=== PATIENT | male | born 1950 | race Caucasian/White ===

== ENCOUNTER 2017-03-24 13:24 | Outpatient (RCR) | payer MEDICARE, OTHER ==
[~2017-03-24 13:24] MED LIST: BUPR200T PO; CLON0.5T3 PO; HYDR118S10 PO; LEVO75TA6 PO; LOVA20TA2 PO; NAPR-689 PO; TRAM50TA2 PO
== END 2017-05-16 16:00 | disposition home or self-care (01) ==
PROVIDERS: ATTEND Podiatrist
DX: Z47.1 Aftercare following joint replacement surgery (principal); Z96.662 Presence of left artificial ankle joint

== ENCOUNTER → 2017-10-15 | Outpatient (CLI) | payer MEDICARE, OTHER | LOC: WOUNDCARE 09:11 | PROVIDERS: ATTEND Surgery | DX: I87.332 Chronic venous hypertension (idiopathic) with ulcer and inflammation of left lower extremity (principal); L97.222 Non-pressure chronic ulcer of left calf with fat layer exposed; T81.31XA Disruption of external operation (surgical) wound, not elsewhere classified, initial encounter | CPT/HCPCS: 11042; 87070; 87075; 87186; 87205; 99213 ==

== ENCOUNTER → 2017-10-20 | Outpatient (CLI) | payer MEDICARE, OTHER | LOC: WOUNDCARE 13:52 | PROVIDERS: ATTEND Surgery | DX: I87.332 Chronic venous hypertension (idiopathic) with ulcer and inflammation of left lower extremity (principal); L97.222 Non-pressure chronic ulcer of left calf with fat layer exposed; T81.31XA Disruption of external operation (surgical) wound, not elsewhere classified, initial encounter | CPT/HCPCS: 11042 ==

== ENCOUNTER → 2017-10-31 | Outpatient (CLI) | payer MEDICARE, OTHER | LOC: WOUNDCARE 08:55 | PROVIDERS: ATTEND Surgery | DX: L97.222 Non-pressure chronic ulcer of left calf with fat layer exposed (principal); I87.332 Chronic venous hypertension (idiopathic) with ulcer and inflammation of left lower extremity; T81.31XA Disruption of external operation (surgical) wound, not elsewhere classified, initial encounter | CPT/HCPCS: 99213 ==

== ENCOUNTER 2018-11-09 11:38 | Emergency (ER) | payer MEDICARE, OTHER ==
[~2018-11-09] VITALS: Ht 185.4 cm; Wt 105.2 kg
[~2018-11-09 11:38] MED LIST changes: +FAMOTIDINE 20MG/2ML IV (PEPCID) ONE; +diphenhydrAMINE 50 MG/ML INJ (BENADRYL) ONE; +methylPREDNISolone 125 MG (Solu-MEDROL) VIAL ONE
--- OUTSIDE RECORDS SUMMARY | 2018-11-09 11:42 | XMS REPORT | Continuity of Care Document ---
Author Organization Unknown Address Unknown Phone Unavailable Allergies Active Description Code Type Severity Reaction Onset Reported/Identified Relationship to Patient Clinical Status Yes Penicillins [id number] Drug Allergy Unknown N/A 12/05/2013 Medications There is no data. Problems Date Dx Coded Attending Type Code Diagnosis Diagnosed By 12/05/2013 SIMI GIPSON MD Ot 596.3 DIVERTICULUM OF BLADDER 12/05/2013 SIMI GIPSON MD Ot 753.10 CYSTIC KIDNEY DISEASE, UNSPECIFIED 12/05/2013 SIMI GIPSON MD Ot 789.09 ABDOMINAL PAIN, OTHER SPECIFIED SITE 03/11/2014 CONNOR ESQUEDA MD Ot V43.65 KNEE JOINT REPLACEMENT STATUS 03/11/2014 CONNOR ESQUEDA MD Ot V54.81 AFTERCARE FOLLOWING JOINT REPLACEMENT 03/11/2014 CONNOR ESQUEDA MD Ot V57.1 PHYSICAL THERAPY NEC 03/13/2017 Ot 794.5 ABN THYROID FUNCT STUDY 03/13/2017 MELLY KAY LABORATORY COORDINATOR Ot 786.07 WHEEZING 03/13/2017 MELLY KAY LABORATORY COORDINATOR Ot 786.2 COUGH 03/17/2017 Ot 794.5 ABN THYROID FUNCT STUDY 03/17/2017 MELLY KAY LABORATORY COORDINATOR Ot 786.07 WHEEZING 03/17/2017 MELLY KAY LABORATORY COORDINATOR Ot 786.2 COUGH 05/05/2017 ADELAIDA MARTINEZ DPM Ot Z47.1 AFTERCARE FOLLOWING JOINT REPLACEMENT BUSTOS 05/05/2017 ADELAIDA MARTINEZ DPM Ot Z96.662 PRESENCE OF LEFT ARTIFICIAL ANKLE JOINT 10/16/2017 BARNEY FLORENTINO MD Ot 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 10/16/2017 BARNEY FLORENTINO MD Ot L97.222 NON-PRESSURE CHRONIC ULCER OF LEFT CALF 10/16/2017 BARNEY FLORENTINO MD Ot T81.31XA DISRUPTION OF EXTERNAL OPERATION (SURGIC 10/23/2017 BARNEY FLORENTINO MD, Ot 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 10/23/2017 BARNEY FLORENTINO MD Ot L97.222 NON-PRESSURE CHRONIC ULCER OF LEFT CALF 10/23/2017 BARNEY FLORENTINO MD, Ot T81.31XA DISRUPTION OF EXTERNAL OPERATION (SURGIC 10/26/2017 BARNEY FLORENTINO MD, Ot 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 10/26/2017 BARNEY FLORENTINO MD, Ot L97.222 NON-PRESSURE CHRONIC ULCER OF LEFT CALF 10/26/2017 BARNEY FLORENTINO MD Ot T81.31XA DISRUPTION OF EXTERNAL OPERATION (SURGIC 11/03/2017 BARNEY FLORENTINO MD, Ot 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 11/03/2017 BARNEY FLORENTINO MD, Ot L97.222 NON-PRESSURE CHRONIC ULCER OF LEFT CALF 11/03/2017 BARNEY FLORENTINO MD, Ot T81.31XA DISRUPTION OF EXTERNAL OPERATION (SURGIC 11/04/2017 BARNEY FLORENTINO MD, Ot 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 Results Test Result Range Bacteria identification in isolate by anaerobe culture - 10/15/17 10:22 Bacteria identification in isolate by anaerobe culture NOANA NRG Gram stain microscopy - 10/15/17 10:22 GRAM STAIN RESULT NO BACTERIA NRG Bacteria identification in wound by culture - 10/15/17 10:22 Bacteria identification in wound by culture [id number] NR FREE TEXT EXTERNAL SENSTIVITY REPORTED 10/19/17 8:15 NRG QUANTITY OF GROWTH Scant Growth NR Bacterial susceptibility panel - 10/15/17 10:22 Oxacillin susceptibility test by minimum inhibitory concentration <= NRG Gentamicin susceptibility test by minimum inhibitory concentration <= NRG Clindamycin susceptibility test by minimum inhibitory concentration >= NRG Erythromycin susceptibility test by minimum inhibitory concentration >= NRG Trimethoprim/sulfamethoxazole susceptibility test by minimum inhibitoryconcentration R NRG Vancomycin susceptibility test by minimum inhibitory concentration 1 NRG Levofloxacin susceptibility test by minimum inhibitory concentration 0.25 NRG Rifampin susceptibility test by minimum inhibitory concentration <= NRG Tetracycline susceptibility test by minimum inhibitory concentration >= NRG Linezolid susceptibility test by minimum inhibitory concentration 1 NRG Encounters ACCT No. Visit Date/Time Discharge Status Pt. Type Provider Facility Loc./Unit Complaint 08/20/15 10/14/2018 23:24:56 10/14/2018 23:59:59 CLS Outpatient MacLashanda byrd [id number] 10/31/2017 08:55:00 10/31/2017 23:59:59 CLS Outpatient BARNEY FLORENTINO MD [facility] [id number] 10/20/2017 13:52:00 10/20/2017 23:59:59 CLS Outpatient BARNEY FLORENTINO MD [facility] [id number] 10/15/2017 09:11:00 10/15/2017 23:59:59 CLS Outpatient BARNEY FLORENTINO MD [facility] [id number] 03/24/2017 13:24:00 05/16/2017 16:00:00 DIS Outpatient ADELAIDA MARTINEZ DPM [facility] S/P TOTAL ANKLE REPLACEMENT L [id number] 03/11/2014 14:45:00 03/11/2014 15:46:00 DIS Outpatient CONNOR ESQUEDA MD [facility] RT TKR [id number] 12/05/2013 20:05:00 12/05/2013 22:15:00 DIS Emergency SIMI GIPSON MD [facility] ER KIDNEY PAIN [id number] 04/19/2013 14:39:00 04/19/2013 23:59:59 CLS Outpatient MELLY KAY [facility] RAD COUGH,WHEEZING [id number] 11/18/2011 09:38:00 Document Registration
--- NOTE | 2018-11-09 11:50 | ED General ---
General Stated Complaint: ALLERGIC REACTION Source of Information: Patient Exam Limitations: No Limitations History of Present Illness Date Seen by Provider: Nov 09, 2018 Time Seen by Provider: 11:48 Initial Comments To ER by private vehicle from Dr. ROJAS's office with reports of allergic reaction. Patient was started on clindamycin 5 days ago for "MRSA" wounds on the right shoulder. Those are looking much better but starting yesterday he had redness and itching to both of his arms. treated with topical Benadryl at home no improvement. He feels a bit short of breath today during follow-up with Dr. Rojas's nurse practitioner and was referred to the emergency room. Timing/Duration: 1-2 Days Severity: Moderate Allergies and Home Medications Allergies Coded Allergies: Penicillins (Verified Allergy, Unknown, 12/05/13) Home Medications Bupropion Hcl 200 Mg Tablet.sa, 200 MG PO BID, (Reported) Clonazepam 0.5 Mg Tablet, 0.5 MG PO BID, (Reported) 1/2-1 TAB UP TO 2 TIMES PER DAY Hydrocodone/Acetaminophen 1 Each Tablet, 1 EACH PO Q6H PRN for PAIN Prescribed by: SIMI GIPSON on 12/05/132205 Levothyroxine Sodium 75 Mcg Tablet, 75 MCG PO DAILY, (Reported) Lovastatin 20 Mg Tablet, 1 EACH PO DAILY WITH SUPPER, (Reported) Naproxen 500 Mg Tablet, 500 MG PO BID, (Reported) Tramadol Hcl 50 Mg Tablet, 50 MG PO QID, (Reported) Patient Home Medication List Home Medication List Reviewed: Yes Review of Systems Review of Systems Constitutional: see HPI EENTM: see HPI Respiratory: see HPI, dyspnea on exertion, short of breath Cardiovascular: no symptoms reported Genitourinary: no symptoms reported Musculoskeletal: no symptoms reported Skin: see HPI Psychiatric/Neurological: No Symptoms Reported Hematologic/Lymphatic: No Symptoms Reported Immunological/Allergic: no symptoms reported Past Axlpnmi-Eyvcrz-Bywxcm Hx Past Medical History Pneumonia Reproductive Disorders: No Sexually Transmitted Disease: No HIV/AIDS: No Kidney Infection Abdominal Hernia Hypothyroidsim Sleep Difficulties, Anxiety Physical Exam Vital Signs Vital Signs - First Documented 11/09/18 11:45 Temp 100.0 Pulse 84 Resp 22 B/P (MAP) 137/96 (110) Pulse Ox 97 O2 Delivery Room Air Capillary Refill : Height, Weight, BMI Height: 6'1" Weight: 190lbs. oz. 86.882697zc; BMI Method:Stated General Appearance: No Apparent Distress, WD/WN, Other (no wheezing or shortness of breath that is apparent.) Eyes: Bilateral Eye Normal Inspection, Bilateral Eye PERRL, Bilateral Eye EOMI HEENT: PERRL/EOMI, Other (no tongue or uvula swelling no stridor) Neck: Full Range of Motion, Normal Inspection Respiratory: Normal Breath Sounds, No Accessory Muscle Use, No Respiratory Distress; No Stridor, No Wheezing Cardiovascular: Regular Rate, Rhythm, Normal Peripheral Pulses Gastrointestinal: Normal Bowel Sounds, Non Tender, Soft, Other (he is neither tachycardic nor hypotensive) Extremity: Normal Capillary Refill, Normal Inspection (extremities are diffusely urticarial and red, around the waistline as well, anterior torso is clear, posterior torso) Neurologic/Psychiatric: Alert, Oriented x3 Skin: Normal Color, Warm/Dry Progress/Results/Core Measures Suspected Sepsis SIRS Temperature: Pulse: Respiratory Rate: Blood Pressure / Mean: Results/Orders My Orders Orders - JENNIFER BOYD APRN Diphenhydramine Injection (Benadryl Inje (11/09/18 12:15) Famotidine Injection (Pepcid Injection) (11/09/18 12:15) Methylprednisolone Sod Succ (Solu-Medrol (11/09/18 12:15) Vital Signs/I&O 11/09/18 11:45 Temp 100.0 Pulse 84 Resp 22 B/P (MAP) 137/96 (110) Pulse Ox 97 O2 Delivery Room Air Capillary Refill : Departure Communication (Admissions) 1238-patient is feeling better, less itching, the erythema to the arms is still present but much cone examiner in color. No difficulty breathing. Still no tongue swelling. Impression Primary Impression: Allergic reaction Qualified Codes: T78.40XA - Allergy, unspecified, initial encounter Disposition: 01 HOME, SELF-CARE Condition: Stable Departure-Patient Inst. Decision time for Depature: 12:49 Referrals: ADELAIDA MARTINEZ DPM (PCP) Primary Care Physician Patient Instructions: Drug Allergy Add. Discharge Instructions: 1. Take Benadryl one tablet every 4 hours for the next 24 hours. Take steroids as directed starting today. Return to ER for any concerns. Scripts Prednisone (Prednisone) 20 Mg Tab 40 MG PO DAILY, #8 TAB 0 Refills Prov: JENNIFER BOYD APRN 11/09/18 JENNIFER BOYD APRN Nov 09, 2018 11:50
[2018-11-09] MEDS ORDERED: FAMOTIDINE 20MG/2ML IV (PEPCID) IVP ONE (12:15)
[2018-11-09] MEDS ORDERED: diphenhydrAMINE 50 MG/ML INJ (BENADRYL) IVP ONE (12:15)
[2018-11-09] MEDS ORDERED: methylPREDNISolone 125 MG (Solu-MEDROL) VIAL IVP ONE (12:15)
[2018-11-09] MEDS ORDERED: PRD20T PO (12:50)
[2018-11-09 13:10] VITALS: BP 109/79
== END 2018-11-09 13:10 | disposition home or self-care (01) ==
LOC: EDUNIT# 11:38 → ER 11:39
DX: T78.40XA Allergy, unspecified, initial encounter (principal); E03.9 Hypothyroidism, unspecified; F41.9 Anxiety disorder, unspecified; Z88.0 Allergy status to penicillin

== ENCOUNTER → 2019-04-26 | Outpatient (CLI) | payer MEDICARE, OTHER ==
[~2019-04-26] MED LIST changes: -FAMOTIDINE 20MG/2ML IV (PEPCID) ONE; +PRD20T PO; -diphenhydrAMINE 50 MG/ML INJ (BENADRYL) ONE; -methylPREDNISolone 125 MG (Solu-MEDROL) VIAL ONE
--- NOTE | 2019-04-26 10:05 | Diagnostic Imaging Report ---
PROCEDURE: US Hepatic (Liver). TECHNIQUE: Multiple real-time grayscale images were obtained over the right upper quadrant in various projections. INDICATION: Elevated liver enzymes. FINDINGS: The liver is normal in size at 17 cm. There is diffuse increased echogenicity throughout the liver consistent with hepatic steatosis. No discrete liver mass is identified. The portal vein is patent and shows normal direction of flow. The gallbladder is without stones or sludge. No wall thickening or biliary ductal dilatation is seen. Pancreas and aorta were obscured by bowel gas. IVC is patent. Right kidney does contain a large cyst in the upper pole approximately 7 cm in diameter. No calculi or hydronephrosis is seen. There is no ascites. IMPRESSION: 1. Hepatic steatosis. 2. No evidence of cholelithiasis or acute cholecystitis. 3. 7 cm right renal cyst. Dictated by: Dictated on workstation # [id number]
== END ==
LOC: RAD 07:52
PROVIDERS: ATTEND Family Medicine
DX: K76.0 Fatty (change of) liver, not elsewhere classified (principal); N28.1 Cyst of kidney, acquired
CPT/HCPCS: 76705

== ENCOUNTER → 2021-01-22 | Outpatient (CLI) | payer MEDICARE ==
--- NOTE | 2021-01-22 15:58 | Diagnostic Imaging Report ---
PROCEDURE: US Renal Bilateral. TECHNIQUE: Multiple real-time grayscale images were obtained over the kidneys in various projections bilaterally. INDICATION: Acute renal failure. COMPARISON: Comparison with ultrasound from 04/26/2019. FINDINGS: Right kidney measures 13 x 5.6 x 4.8 cm. There is a large simple cyst measuring 7 cm again demonstrated off the upper pole. No solid masses or calculi are seen. There is no hydronephrosis. The left kidney measures 11 x 6 x 6 cm. There is a cyst in the mid upper pole measuring 1.5 cm. No calculi or hydronephrosis. The bladder appears normal with bilateral ureteral jets. IMPRESSION: There are benign-appearing cysts within the kidneys bilaterally. Largest on the right has not changed since the previous hepatic ultrasound. Dictated by: Dictated on workstation # [id number]
== END ==
LOC: RAD 14:45
PROVIDERS: ATTEND Family Medicine
DX: N28.1 Cyst of kidney, acquired (principal); N17.9 Acute kidney failure, unspecified
CPT/HCPCS: 76770

== ENCOUNTER 2021-03-25 23:20 | Emergency (ER) | payer MEDICARE ==
[~2021-03-25] VITALS: Ht 185 cm; Wt 105.0 kg
[2021-03-25] MEDS ORDERED: LISI10TA25 (23:46)
--- NOTE | 2021-03-26 00:22 | ED Cough/URI ---
General Chief Complaint: COVID19 Suspect/Confirmed Stated Complaint: COUGH / FEVER / WEAKNESS/ SORE THRAOT / BODY ACHES Nursing Triage Note: REPORTS EXPOSURE TO COVID + FAMILY APPROX. 1 WEEK AGO. C/O INTERMITTANT FEVER/SOA/WEAKNESS X4 DAYS. Source: patient (VERY VAGUE AND SOMEWHAT DIFFICULT HISTORIAN) History of Present Illness Date Seen by Provider: Mar 25, 2021 Time Seen by Provider: 23:36 Initial Comments PT ARRIVES VIA POV FROM HOME STATES HE HAS COVID--BUT HAS NOT BEEN TESTED OR SOUGHT CARE AT ANY TIME UNTIL TONIGHT SYMPTOMS ARE NO DIFFERENT TONIGHT IN ANY WAY C/O COUGH AND CONGESTION C/O SUBJECTIVE FEVER C/O HEADACHE C/O BODY ACHES C/O SORE THROAT C/O LOSS OF TASTE AND SMELL C/O NAUSEA AND "A LITTLE BIT" OF VOMITING, DIARRHEA X 2 TODAY C/O FATIGUE AND GENERALIZED WEAKNESS NO SHORTNESS OF BREATH NO URINARY SYMPTOMS AND VOIDING A NORMAL AMOUNT STATES SYMPTOMS BEGAN "SOMETIME BEFORE LAST WEEKEND" BUT CANNOT BE ANY MORE SPECIFIC THAN THAN ( TONIGHT IS FRIDAY NIGHT, AND PT STATES HE HAS BEEN SICK FOR OVER A WEEK ) PT STATES HIS GRANDSON TESTED POSITIVE "A WEEK OR TWO AGO" PT STATES HIS IS ALSO ILL, BUT SHE HAS NOT BEEN TESTED OR SOUGHT CARE PT HAS NOT HAD COVID-19 VACCINE, NOR HAS HIS PT HAS NOT TAKEN ANY TYLENOL OR MOTRIN AT ANY TIME, NOR HAS HE TAKEN ANYTHING FOR COUGH AND CONGESTION STATES HE DID TAKE TRAMADOL A COUPLE OF TIMES FOR BODY ACHES PT DENIES ANY CHRONIC RESPIRATORY PROBLEMS STATES HE QUIT SMOKING 20 YEARS AGO. PCP: DR. VALLADARES Allergies and Home Medications Allergies Coded Allergies: Penicillins (Verified Allergy, Unknown, 12/05/13) clindamycin (Verified Allergy, Unknown, 11/09/18) Patient Home Medication List Home Medication List Reviewed: Yes Levothyroxine Sodium (Levothyroxine 75 Mcg Tab) 75 Mcg Tablet, 75 MCG PO DAILY, (Reported) Entered as Reported by: JUAN F PICKARD on 12/05/13 2030 Last Action: Last Taken Edited Lisinopril (Lisinopril) 10 Mg Tablet, (Reported) Entered as Reported by: SCOTTY YARBROUGH on 03/25/21 2346 Last Action: New Order Tramadol Hcl (Tramadol Hcl) 50 Mg Tablet, 50 MG PO QID, (Reported) Entered as Reported by: JUAN F PICKARD on 12/05/132029 Last Action: Last Taken Edited Discontinued Medications Bupropion Hcl (Bupropion Hcl) 200 Mg Tablet.sa, 200 MG PO BID, (Reported) Discontinued Reason: No Longer Taking Entered as Reported by: JUAN F PICKARD on 12/05/132029 Last Action: Discontinued Clonazepam (Clonazepam) 0.5 Mg Tablet, 0.5 MG PO BID, (Reported) Discontinued Reason: No Longer Taking Entered as Reported by: JUAN F PICKARD on 12/05/132030 Last Action: Discontinued Hydrocodone/Acetaminophen (Hydrocodon-Acetamin 7.5-325/15) 1 Each Tablet, 1 EACH PO Q6H PRN for PAIN Discontinued Reason: No Longer Taking Prescribed by: SIMI GIPSON on 12/05/132205 Last Action: Discontinued Lovastatin (Lovastatin 20 Mg) 20 Mg Tablet, 1 EACH PO DAILY WITH SUPPER, (Reported) Discontinued Reason: No Longer Taking Entered as Reported by: JUAN F PICKARD on 12/05/132030 Last Action: Discontinued Naproxen (Naproxen) 500 Mg Tablet, 500 MG PO BID, (Reported) Discontinued Reason: No Longer Taking Entered as Reported by: JUAN F PICKARD on 12/05/132030 Last Action: Discontinued Prednisone (Prednisone) 20 Mg Tab, 40 MG PO DAILY Discontinued Reason: No Longer Taking Prescribed by: JENNIFER BOYD on 11/09/18 1250 Last Action: Discontinued Review of Systems Review of Systems Constitutional: see HPI, fever, malaise, weakness EENTM: see HPI, nose congestion, throat pain Respiratory: see HPI, cough; No phlegm, No short of breath, No wheezing Cardiovascular: no symptoms reported; No chest pain Gastrointestinal: see HPI; No abdominal pain; diarrhea, nausea, vomiting Genitourinary: no symptoms reported Musculoskeletal: see HPI (BODY ACHES) Skin: no symptoms reported Psychiatric/Neurological: See HPI, Headache Hematologic/Lymphatic: No Symptoms Reported Immunological/Allergic: no symptoms reported Past Pidawrq-Fghrct-Vvqnmk Hx Patient Social History Tobacco Use?: Yes (QUIT SMOKING 20 YEARS AGO) Tobacco type used: Cigarettes Smoking Status: Former Smoker Substance use?: No Alcohol Use?: No Pt feels they are or have been: No Immunizations Up To Date Influenza Vaccine Up-to-Date: Yes; Up-to-Date Seasonal Allergies Seasonal Allergies: Yes Past Medical History Surgery/Hospitalization HX: HTN, ORTHOPEDIC SX. Surgeries: Yes (HERNIA, LT ANKLE, RT KNEE) Abdominal, Orthopedic Respiratory: Yes Pneumonia Cardiac: Yes (HX OF HYPERTENSION--DOES NOT TAKE MEDICATION) Neurological: No (HEAT STROKE) Reproductive Disorders: No Sexually Transmitted Disease: No HIV/AIDS: No Genitourinary: Yes Kidney Infection Gastrointestinal: Yes Abdominal Hernia Musculoskeletal: Yes (KNEE PAIN) Arthritis Endocrine: Yes Hypothyroidsim HEENT: No Cancer: No Psychosocial: Yes Sleep Difficulties, Anxiety Blood Disorders: No Physical Exam Vital Signs - First Documented 03/25/21 23:35 Temp 36.1 Pulse 87 Resp 16 B/P (MAP) 132/79 (96) Pulse Ox 94 O2 Delivery Room Air Capillary Refill : Less Than 3 Seconds Height: 6'1" Weight: 232lbs. oz. 105.529030qi; 30.00 BMI Method:Stated General Appearance: WD/WN, no apparent distress, other (FLAT AFFECT, BUT DOES NOT APPEAR ILL OR TO BE IN ANY DISCOMFORT OR DISTRESS. WALKS AND MOVES WITHOUT DIFFICULTY) HEENT: PERRL/EOMI, normal ENT inspection, TMs normal, pharynx normal Neck: normal inspection Respiratory: normal breath sounds, no respiratory distress, no accessory muscle use Cardiovascular: regular rate, rhythm, no murmur Gastrointestinal: non tender, soft Extremities: normal inspection Neurologic/Psychiatric: end user consultant II-XII nml as tested, no motor/sensory deficits, alert, oriented x 3 Skin: normal color, warm/dry; No rash Progress/Results/Core Measures Suspected Sepsis SIRS Temperature: Pulse: 87 Respiratory Rate: 16 Blood Pressure 132 /79 Mean: 96 Results/Orders Lab Results Laboratory Tests Test 03/25/21 23:39 Range/Units Influenza Type A (RT-PCR) Not Detected Not Detecte Influenza Type B (RT-PCR) Not Detected Not Detecte SARS-CoV-2 RNA (RT-PCR) Detected H Not Detecte My Orders Orders - FADI TO DO Influenza A And B By Pcr (03/25/21 23:36) Covid 19 Inhouse Test (03/25/21 23:36) Isolation Central Supply Req (03/25/21 23:36) Chest 1 View, Ap/Pa Only (03/26/21 00:01) Vital Signs/I&O 03/25/21 23:35 Temp 36.1 Pulse 87 Resp 16 B/P (MAP) 132/79 (96) Pulse Ox 94 O2 Delivery Room Air Capillary Refill : Less Than 3 Seconds Blood Pressure Mean: 96 Progress Note : Progress Note PLACED IN ISOLATION ROOM PPE WORN AT ALL TIMES COVID-19 TESTING PERFORMED PT ADVISED OF NEED FOR QUARANTINE AND RETURN PRECAUTIONS, WELL SYMPTOMATIC CARE AT HOME PT IS NOT A CANDIDATE FOR MAB ONSET IS VAGUE, AND HAS BEEN ILL FOR OVER A WEEK. Diagnostic Imaging Comments CXR--NO ACUTE PROCESS, PENDING RADIOLOGIST REVIEW Reviewed: Reviewed by Me Departure Impression Primary Impression: COVID-19 virus infection Disposition: HOME, SELF-CARE Condition: Stable Departure-Patient Inst. Decision time for Depature: 00:19 Referrals: JESSICA VALLADARES DO (PCP/Family) Primary Care Physician Patient Instructions: COVID-19 ED, Preventing the Spread of an Infectious Disea se Add. Discharge Instructions: LOTS OF CLEAR LIQUIDS--WATER, BROTH, JELLO, GATORADE--DRINK ENOUGH SO YOU ARE URINATING EVERY 2-3 HOURS WHILE AWAKE TYLENOL 1 GRAM 4 TIMES A DAY MOTRIN 800 MG 4 TIMES A DAY FOR PAIN OR FEVER MUCINEX DM FOR COUGH AND CONGESTION QUARANTINE YOURSELF AND ALL HOUSEHOLD MEMBERS FOR THE NEXT 10 DAYS--NO ONE ENTERS OR LEAVES YOUR HOME FOR THE NEXT 10 DAYS RETURN TO ER IF YOU HAVE SEVERE SHORTNESS OF BREATH FOLLOW UP WITH DR. VALLADARES NEEDED All discharge instructions reviewed with patient and/or family. Voiced understanding. FADI TO DO Mar 26, 2021 00:22
[2021-03-26 00:24] VITALS: BP 133/79
--- NOTE | 2021-03-26 04:28 | Diagnostic Imaging Report ---
INDICATION: Covid patient, cough and fever. Compared 04/19/2013. FINDINGS: No focal alveolar consolidation or bronchograms. There is no failure, effusion or pneumothorax. No free air beneath the diaphragms. IMPRESSION: No acute or focal abnormality radiographically apparent. Dictated by: Dictated on workstation # [id number]
[2021-03-28] MEDS ORDERED: FAMO20TA5 PO (12:50)
[2021-03-28] MEDS ORDERED: DEXA6TAB6 PO (12:50)
[2021-03-28] MEDS ORDERED: Albuterol Inhaler IH (12:50)
[2021-03-28] MEDS ORDERED: LACT1CAP7 PO (12:50)
[2021-03-28] MEDS ORDERED: GUAI100L13 PO (12:50)
== END 2021-03-26 00:29 | disposition home or self-care (01) ==
LOC: EDUNIT# 23:20 → ER 23:21
DX: U07.1 COVID-19 (principal); I10 Essential (primary) hypertension; E03.9 Hypothyroidism, unspecified; F41.9 Anxiety disorder, unspecified; Z87.891 Personal history of nicotine dependence; Z79.890 Hormone replacement therapy; Z79.899 Other long term (current) drug therapy
CPT/HCPCS: 71045; 87636

== ENCOUNTER 2021-03-26 15:37 | Inpatient (IN) | payer MEDICARE ==
[~2021-03-26] VITALS: Ht 185 cm; Wt 102.3 kg
[~2021-03-26 15:37] MED LIST changes: +LISI10TA25
[2021-03-26 16:30] VITALS: BP 122/84
[2021-03-26] MEDS ORDERED: ONDANSETRON 4 MG/2 ML (SDV) Z0FRAN IV PRN (16:45)
--- NOTE | 2021-03-26 17:11 | Diagnostic Imaging Report ---
INDICATION: Covid positive, cough and fever.. TECHNIQUE: Single view chest 5:07 PM. CORRELATION STUDY: 03/26/2021 FINDINGS: The heart size, mediastinal configuration and pulmonary vascularity are within normal limits. Lung cee appearing relatively clear at follow-up. No definitive consolidating infiltrate. IMPRESSION: 1. Negative for acute abnormality of the chest. Dictated by: Dictated on workstation # [id number]
[2021-03-26] MEDS: guaiFENesin SYRUP 100 MG/5 ML 10 ML (ROBITUSSIN SF) PO PRN ×2 (17:31→23:51)
[2021-03-26] MEDS: ENOXAPARIN 40 MG/0.4 ML (LOVENOX) SYR SC SCH (17:31)
[2021-03-26] MEDS: NS IV 1000 ML 1,000 ML IV SCH ×2 (17:34→23:57)
[2021-03-26 18:02] LABS: BASOPHILS % (AUTO) 0 % (0-10); EOSINOPHILS % (AUTO) 0 % (0-10); HEMATOCRIT 38 % (40-54); HEMOGLOBIN 12.6 g/dL (13.3-17.7); LYMPHOCYTES # (AUTO) 1.7 10^3/uL (1.0-4.0); LYMPHOCYTES % (AUTO) 39 % (12-44); MEAN CORPUSCULAR HEMOGLOBIN 29 pg (25-34); MEAN CORPUSCULAR HGB CONC 33 g/dL (32-36); MEAN CORPUSCULAR VOLUME 89 fL (80-99); MEAN PLATELET VOLUME 9.2 fL (9.0-12.2); MONOCYTES # (AUTO) 0.5 10^3/uL (0.0-1.0); MONOCYTES % (AUTO) 11 % (0-12); NEUTROPHILS # (AUTO) 2.1 10^3/uL (1.8-7.8); NEUTROPHILS % (AUTO) 49 % (42-75); PLATELET COUNT 169 10^3/uL (130-400); WHITE BLOOD COUNT 4.3 10^3/uL (4.3-11.0)
[2021-03-26 18:12] LABS: ALBUMIN 3.9 GM/DL (3.2-4.5)
[2021-03-26 18:13] LABS: CHLORIDE 98 MMOL/L (98-107); SODIUM 129 MMOL/L (135-145)
[2021-03-26 18:14] LABS: CALCIUM 8.4 MG/DL (8.5-10.1)
[2021-03-26 18:15] LABS: GLUCOSE 105 MG/DL (70-105); TOTAL PROTEIN 7.6 GM/DL (6.4-8.2)
[2021-03-26 18:16] LABS: CARBON DIOXIDE 18 MMOL/L (21-32)
[2021-03-26 18:17] LABS: BILIRUBIN,TOTAL 0.4 MG/DL (0.1-1.0)
[2021-03-26 18:18] LABS: ALKALINE PHOSPHATASE 39 U/L (40-136)
[2021-03-26 18:19] LABS: CREATININE SERUM 1.32 MG/DL (0.60-1.30); GFR ESTIMATED 53
[2021-03-26 18:20] LABS: BUN/CREATININE RATIO 16
[2021-03-26 18:22] LABS: ALANINE AMINOTRANSFERASE 33 U/L (0-55)
[2021-03-26 18:28] LABS: CREATINE KINASE MB 1.5 NG/ML (<6.6)
[2021-03-26] MEDS: LACTOBACILLUS ACIDOPHILUS (PROBIOTIC) CAPSULE PO SCH (18:39)
[2021-03-26] MEDS: RT-ALBUTEROL HFA 8.5 GM INHALER IH SCH ×2 (18:55→22:40)
[2021-03-26 19:13] LABS: ABG BASE EXCESS -2.2 MMOL/L (-2.5-2.5); ABG OXYGEN SATURATION 97 % (94-100); ABG PCO2 32 MMHG (35-45); ABG PH 7.44 (7.37-7.43); ABG PO2 74 MMHG (79-93); ABG TCO2 22.4 MMOL/L (21.0-31.0); ALLENS TEST YES-POS; INSPIRED O2 ROOM AIR; PATIENT TEMP 36.6; VENTILATOR NO
[2021-03-26 20:00] VITALS: BP 138/83
[2021-03-26] MEDS: ACETAMINOPHEN 325 MG TABLET PO PRN (23:51)
[2021-03-26 23:58] VITALS: BP 146/82
[2021-03-27] MEDS: RT-ALBUTEROL HFA 8.5 GM INHALER IH SCH ×6 (02:41→21:14)
[2021-03-27 04:45] VITALS: BP 126/75
[2021-03-27 05:15] LABS: POTASSIUM 3.9 MMOL/L (3.6-5.0)
[2021-03-27 05:16] LABS: CALCIUM 8.2 MG/DL (8.5-10.1)
[2021-03-27 05:21] LABS: CREATININE SERUM 1.31 MG/DL (0.60-1.30)
[2021-03-27] MEDS: ACETAMINOPHEN 325 MG TABLET PO PRN ×3 (05:52→20:28)
[2021-03-27] MEDS: NS IV 1000 ML 1,000 ML IV SCH ×3 (05:54→20:27)
[2021-03-27] MEDS: UMECLIDINIUM BROMIDE (INCRUSE ELLIPTA) 7'S IH SCH (07:37)
[2021-03-27 08:00] VITALS: BP 127/77
[2021-03-27] MEDS ORDERED: TIOTROPIUM BROMIDE (SPIRIVA) 5'S INHALER IH SCH (08:00)
[2021-03-27] MEDS: LACTOBACILLUS ACIDOPHILUS (PROBIOTIC) CAPSULE PO SCH ×3 (10:09→17:40)
[2021-03-27 11:10] VITALS: BP 129/74
--- NOTE | 2021-03-27 12:33 | History & Physical ---
History of Present Illness History of Present Illness Reason for visit/HPI This is a 70 yo unvaccinated male who presented to the emergency room with fatigue and diarrhea. He was diagnosed with COVID 19 and sent home and instructed on oral hydration. However, the patient had ongoing diarrhea which was exacerbated by eating or drinking so he refused to eat or drink and was becoming weaker and more confused. A telemed visit was done with him to discuss outpatient monoclonal antibodies but his condition has worsened so a direct admit was done for IVFs and further evaluation. He was found to be hyponatremic with a sodium of 129 and his creatinine was 1.32. He currently is stable from a respiratory standpoint but is very fatigued with ongoing diarrhea. Date of Admission Mar 26, 2021 at 16:14 Date Seen by a Provider: Mar 27, 2021 Time Seen by a Provider: 08:45 I consulted on this patient on 03/27/21 12:19 Attending Physician Jessica Rojas DO Admitting Physician Jessica Rojas DO Consult Allergies and Home Medications Allergies Coded Allergies: Penicillins (Verified Allergy, Unknown, 12/05/13) clindamycin (Verified Allergy, Unknown, 11/09/18) Patient Home Medication List Home Medication List Reviewed: Yes Levothyroxine Sodium (Levothyroxine 75 Mcg Tab) 75 Mcg Tablet, 75 MCG PO DAILY, (Reported) Entered as Reported by: JUAN F PICKARD on 12/05/132029 Lisinopril (Lisinopril) 10 Mg Tablet, (Reported) Entered as Reported by: SCOTTY YARBROUGH on 03/25/21 2346 Tramadol Hcl (Tramadol Hcl) 50 Mg Tablet, 50 MG PO QID, (Reported) Entered as Reported by: JUAN F PICKARD on 12/05/132029 Discontinued Medications Bupropion Hcl (Bupropion Hcl) 200 Mg Tablet.sa, 200 MG PO BID, (Reported) Discontinued Reason: No Longer Taking Entered as Reported by: JUAN F PICKARD on 12/05/132029 Clonazepam (Clonazepam) 0.5 Mg Tablet, 0.5 MG PO BID, (Reported) Discontinued Reason: No Longer Taking Entered as Reported by: JUAN F PICKARD on 12/05/132030 Hydrocodone/Acetaminophen (Hydrocodon-Acetamin 7.5-325/15) 1 Each Tablet, 1 EACH PO Q6H PRN for PAIN Discontinued Reason: No Longer Taking Prescribed by: SIMI GIPSON on 12/05/132205 Lovastatin (Lovastatin 20 Mg) 20 Mg Tablet, 1 EACH PO DAILY WITH SUPPER, (Reported) Discontinued Reason: No Longer Taking Entered as Reported by: JUAN F PICKARD on 12/05/132030 Naproxen (Naproxen) 500 Mg Tablet, 500 MG PO BID, (Reported) Discontinued Reason: No Longer Taking Entered as Reported by: JUAN F PICKARD on 12/05/132030 Prednisone (Prednisone) 20 Mg Tab, 40 MG PO DAILY Discontinued Reason: No Longer Taking Prescribed by: JENNIFER BOYD on 11/09/18 1250 Past Xobbhvs-Qnnflf-Rpysfq Hx Patient Social History Marrital Status: Employed/Student: retired Tobacco Use?: No Use of E-Cig and/or Vaping dev: No Substance use?: No Alcohol Use?: No Pt feels they are or have been: No Immunizations Up To Date Date of Influenza Vaccine: Jan 05, 2021 Tetanus Booster (TDap): Unknown Seasonal Allergies Seasonal Allergies: Yes Current Status Advance Directives: No Communicates: Verbally Primary Language: Burkinan Preferred Spoken Language: Burkinan Is interpretation needed?: No Sensory deficits: Vision impairment Additional sensory deficits: wears glassess for small letters doesnt have them now Implanted or Applied Medical D: None Past Medical History Surgeries: Abdominal, Orthopedic Pneumonia Sexually Transmitted Disease: No HIV/AIDS: No Kidney Infection Abdominal Hernia Arthritis Hypothyroidsim Sleep Difficulties, Anxiety Blood Disorders: No Review of Systems Constitutional: weakness EENTM: No see HPI, No no symptoms reported, No ear discharge, No hearing loss, No ear pain, No blurred vision, No double vision, No eye pain, No tearing, No vision loss, No dental problems, No hoarseness, No mouth pain, No mouth swelling, No epistaxis, No nose congestion, No nose pain, No throat pain, No throat swelling, No other Respiratory: No no symptoms reported, No see HPI, No cough, No dyspnea on exertion, No hemoptysis, No orthopnea, No phlegm, No short of breath, No stridor, No wheezing, No other Cardiovascular: No no symptoms reported, No see HPI, No chest pain, No edema, No Hx of Intervention, No palpitations, No syncope, No vascular heart diseas, No other Gastrointestinal: diarrhea, loss of appetite Genitourinary: decreased output Musculoskeletal: muscle weakness Skin: No no symptoms reported, No see HPI, No change in color, No change in hair/nails, No dryness, No hx of skin cancer, No lesions, No lumps, No pruritus, No rash, No other Psychiatric/Neurological: Weakness Physical Exam Vital Signs Vital Signs - First Documented 03/26/21 16:30 Temp 36.6 Pulse 79 Resp 20 B/P (MAP) 122/84 (97) Pulse Ox 95 O2 Delivery Room Air Capillary Refill : Height, Weight, BMI Height: 6'1" Weight: 232lbs. oz. 105.105423mf; 29.89 BMI Method:Stated General Appearance: Mild Distress HEENT: Normal ENT Inspection Neck: Supple Respiratory: Lungs Clear Cardiovascular: Regular Rate, Rhythm, Systolic Murmur Gastrointestinal: Normal Bowel Sounds, Soft, Tenderness (generalized) Back: No CVA Tenderness Extremity: Non Tender, No Calf Tenderness, No Pedal Edema Neurologic/Psychiatric: Alert, Oriented x3 Skin: Warm/Dry Comments Laboratory Tests 03/26/21 17:50: White Blood Count 4.3, Red Blood Count 4.31, Hemoglobin 12.6L, Hematocrit 38L, Mean Corpuscular Volume 89, Mean Corpuscular Hemoglobin 29, Mean Corpuscular Hemoglobin Concent 33, Red Cell Distribution Width 13.3, Platelet Count 169, Mean Platelet Volume 9.2, Immature Granulocyte % (Auto) 0, Neutrophils (%) (Au to) 49, Lymphocytes (%) (Auto) 39, Monocytes (%) (Auto) 11, Eosinophils (%) (Auto) 0, Basophils (%) (Auto) 0, Neutrophils # (Auto) 2.1, Lymphocytes # (Auto) 1.7, Monocytes # (Auto) 0.5, Eosinophils # (Auto) 0.0, Basophils # (Auto) 0.0, Immature Granulocyte # (Auto) 0.0, Sodium Level 129L, Potassium Level 4.0, Chloride Level 98, Carbon Dioxide Level 18L, Anion Gap 13, Blood Urea Nitrogen 21H, Creatinine 1.32H, Estimat Glomerular Filtration Rate 53, BUN/Creatinine Ratio 16, Glucose Level 105, Lactic Acid Level 0.74, Calcium Level 8.4L, Corrected Calcium 8.5, Total Bilirubin 0.4, Aspartate Amino Transf (AST/SGOT) 55H, Alanine Aminotransferase (ALT/SGPT) 33, Alkaline Phosphatase 39L, Creatine Kinase MB 1.5, Troponin I < 0.028, C-Reactive Protein High Sensitivity 2.74H, Total Protein 7.6, Albumin 3.9, Procalcitonin 0.06 03/26/21 19:05: Blood Gas Puncture Site LF RAD, Blood Gas Patient Temperature 36.6, Arterial Blood pH 7.44H, Arterial Blood Partial Pressure CO2 32L, Arterial Blood Partial Pressure O2 74L, Arterial Blood HCO3 21L, Arterial Blood Total CO2 22.4, Arterial Blood Oxygen Saturation 97, Arterial Blood Base Excess -2.2, Bossman Test YES-POS, Blood Gas Ventilator Setting NO, Blood Gas Inspired Oxygen ROOM AIR 03/27/21 04:45: Sodium Level 133L, Potassium Level 3.9, Chloride Level 101, Carbon Dioxide Level 20L, Anion Gap 12, Blood Urea Nitrogen 20H, Creatinine 1.31H, Estimat Glomerular Filtration Rate 54, BUN/Creatinine Ratio 15, Glucose Level 104, Calcium Level 8.2L Assessment/Plan Assessment and Plan 1. Intractable Diarrhea--admit and hydrate, start probiotic and add levsin 2. Dehydration with Poor Oral Intake--IV Hydration 3. Hyponatremia--hydrate and monitor Na 4. Acute Renal Insufficiency/Metabolic Acidosis--hydrate and monitor BUN/Cr and CO2 5. Hypertension--hold BP meds for now due to low to normal BP and restart if BP increases 6. COVID-19--patient is a good candidate for monoclonal antibody infusion once discharged as he currently is stable from a respiratory standpoint if we can get his diarrhea to improve and adequate hydration to discharge him, on lovenox for DVT prophylaxis as well as decadron and IS and SVNs Admission Diagnosis Admission Status: Inpatient Order (span 2 midnights) Reason for Inpatient Admission: Will need at least 48hrs of IV hydration JESSICA ROJAS DO Mar 27, 2021 12:33
[2021-03-27] MEDS ORDERED: HYOSCYAMINE 0.125 MG (LEVSIN) TAB PO NR (12:45)
[2021-03-27] MEDS ORDERED: FAMOTIDINE 20 MG (PEPCID) TABLET PO NR (12:45)
[2021-03-27 15:59] VITALS: BP 132/79
[2021-03-27] MEDS: HYOSCYAMINE 0.125 MG (LEVSIN) TAB PO SCH (17:40)
[2021-03-27] MEDS: ENOXAPARIN 40 MG/0.4 ML (LOVENOX) SYR SC SCH (17:41)
[2021-03-27 19:54] VITALS: BP 121/70
[2021-03-27] MEDS: FAMOTIDINE 20 MG (PEPCID) TABLET PO SCH (20:28)
[2021-03-27] MEDS: guaiFENesin SYRUP 100 MG/5 ML 10 ML (ROBITUSSIN SF) PO PRN (20:44)
[2021-03-27 23:50] VITALS: BP 135/74
[2021-03-28] MEDS: HYOSCYAMINE 0.125 MG (LEVSIN) TAB PO SCH ×3 (00:25→10:07)
[2021-03-28] MEDS: ACETAMINOPHEN 325 MG TABLET PO PRN ×3 (00:30→15:05)
[2021-03-28 04:58] VITALS: BP 156/85
[2021-03-28] MEDS: NS IV 1000 ML 1,000 ML IV SCH ×2 (05:00→10:05)
[2021-03-28 05:58] LABS: HEMATOCRIT 38 % (40-54); HEMOGLOBIN 12.7 g/dL (13.3-17.7); MEAN CORPUSCULAR HEMOGLOBIN 29 pg (25-34); MEAN CORPUSCULAR HGB CONC 33 g/dL (32-36); MEAN CORPUSCULAR VOLUME 88 fL (80-99); MEAN PLATELET VOLUME 9.3 fL (9.0-12.2); PLATELET COUNT 161 10^3/uL (130-400); WHITE BLOOD COUNT 5.4 10^3/uL (4.3-11.0)
[2021-03-28 06:07] LABS: CALCIUM 8.6 MG/DL (8.5-10.1)
[2021-03-28 06:12] LABS: CREATININE SERUM 1.26 MG/DL (0.60-1.30)
[2021-03-28 08:00] VITALS: BP 144/79
[2021-03-28] MEDS: RT-ALBUTEROL HFA 8.5 GM INHALER IH SCH ×4 (08:54→15:20)
[2021-03-28] MEDS: UMECLIDINIUM BROMIDE (INCRUSE ELLIPTA) 7'S IH SCH (08:54)
[2021-03-28] MEDS: LACTOBACILLUS ACIDOPHILUS (PROBIOTIC) CAPSULE PO SCH ×2 (10:04→13:06)
[2021-03-28] MEDS: FAMOTIDINE 20 MG (PEPCID) TABLET PO SCH (10:04)
[2021-03-28 12:00] VITALS: BP 159/84
[2021-03-28] MEDS ORDERED: ONDANSETRON 4 MG/2 ML (SDV) Z0FRAN IV PRN (12:00)
[2021-03-28] MEDS ORDERED: ACETAMINOPHEN 500 MG TAB (TYLENOL) PO PRN (12:00)
[2021-03-28] MEDS ORDERED: EPINEPHrine INJECTION 1 MG/ML AMP IM PRN (12:00)
[2021-03-28] MEDS ORDERED: diphenhydrAMINE 50 MG/ML INJ (BENADRYL) IV PRN (12:00)
[2021-03-28] MEDS ORDERED: BAMLANIVIMAB 700 MG/ETESEVIMAB 1,400 MG IN NS IV ONE ×3 (12:30)
[2021-03-28] MEDS ORDERED: LACT1CAP7 PO (12:50)
[2021-03-28] MEDS ORDERED: GUAI100L13 PO (12:50)
[2021-03-28] MEDS ORDERED: DEXA6TAB6 PO (12:50)
[2021-03-28] MEDS ORDERED: FAMO20TA5 PO (12:50)
[2021-03-28] MEDS ORDERED: Albuterol Inhaler IH (12:50)
[2021-03-28 14:57] VITALS: BP 166/84
== END 2021-03-28 15:00 | disposition home or self-care (01) | DRG 640 ==
LOC: 4TH 16:14
PROVIDERS: ADMIT Family Medicine; ATTEND Family Medicine
DX: E86.0 Dehydration (principal); U07.1 COVID-19; E87.1 Hypo-osmolality and hyponatremia; E87.2 Acidosis; M19.90 Unspecified osteoarthritis, unspecified site; E03.9 Hypothyroidism, unspecified; F41.9 Anxiety disorder, unspecified; Z79.890 Hormone replacement therapy; Z79.899 Other long term (current) drug therapy; N28.9 Disorder of kidney and ureter, unspecified; R19.7 Diarrhea, unspecified; I10 Essential (primary) hypertension
CPT/HCPCS: 36415; 36600; 71045; 80048; 80053; 82553; 82805; 83605; 84145; 84484; 85025; 85027; 86141; 93005; 94640

== ENCOUNTER 2021-08-15 19:27 | Emergency (ER) | payer MEDICARE ==
[~2021-08-15] VITALS: Ht 185.4 cm; Wt 100.0 kg
[~2021-08-15 19:27] MED LIST changes: +Albuterol Inhaler IH; +DEXA6TAB6 PO; +FAMO20TA5 PO; +GUAI100L13 PO; +LACT1CAP7 PO
[2021-08-15] MEDS ORDERED: TETANUS,DIPTH,PERTUSS P/F (BOOSTRIX) 0.5 ML VIAL IM ONE (20:00)
[2021-08-15] MEDS ORDERED: LIDOCAINE 1% INJ 20 ML VIAL INJ ONE (20:15)
[2021-08-15] MEDS ORDERED: CEPH500T PO (20:39)
--- NOTE | 2021-08-15 20:41 | ED Upper Extremity ---
General Chief Complaint: Laceration Stated Complaint: HAND INJURY Nursing Triage Note: PT ARRIVAL TO ER WITH COMPLAINT OF LACERATION TO LEFT THUMB. PT WAS PUTTING BOX FULL OF GLASS IN TRASH BAG AND CUT HAND. PT CLEANED IT AND CAME TO ER. BLEEDING PRESENT, BUT MINIMAL. History of Present Illness Date Seen by Provider: August 15, 2021 Time Seen by Provider: 19:45 Initial Comments Patient reports a laceration with a glass object to his left thumb. He denies any other injuries. He reports his last tetanus vaccine to be greater than 10 years ago. Onset: just prior to arrival Pain/Injury Location: left thumb Method of Injury: incised Allergies and Home Medications Allergies Coded Allergies: Penicillins (Verified Allergy, Unknown, 12/05/13) clindamycin (Verified Allergy, Unknown, 11/09/18) Patient Home Medication List Home Medication List Reviewed: Yes Cephalexin (Cephalexin) 500 Mg Tablet, 500 MG PO TID Prescribed by: POP ARROYO on 08/15/212038 Dexamethasone (Decadron) 6 Mg Tablet, 6 MG PO DAILY Prescribed by: JESSICA VALLADARES on 03/28/21 1250 Famotidine (Famotidine) 20 Mg Tablet, 20 MG PO BID Prescribed by: JESSICA VALLADARES on 03/28/21 1250 Guaifenesin (Guaifenesin) 100 Mg/5 Ml Liquid, 5 ML PO Q4HR PRN for COUGH Prescribed by: JESSICA VALLADARES on 03/28/21 1250 Lactobacillus Acidophilus/Pect (Acidophilus-Pectin Capsule) 1 Each Capsule, 2 EACH PO TIDWM Prescribed by: JESSICA VALLADARES on 03/28/21 1250 Levothyroxine Sodium (Levothyroxine 75 Mcg Tab) 75 Mcg Tablet, 75 MCG PO DAILY, (Reported) Entered as Reported by: JUAN F PICKARD on 12/05/132029 Lisinopril (Lisinopril) 10 Mg Tablet, (Reported) Entered as Reported by: SCOTTY YARBROUGH on 03/25/212345 Tramadol Hcl (Tramadol Hcl) 50 Mg Tablet, 50 MG PO QID, (Reported) Entered as Reported by: JUAN F PICKARD on 12/05/132029 [Albuterol Inhaler] 8.5 GM HFA.AER.AD, 2 GM IH RTQ4HR Prescribed by: JESSICA VALLADARES on 03/28/21 1250 Review of Systems Constitutional: no symptoms reported, see HPI Skin: see HPI, other (Laceration left thumb) All Other Systems Reviewed Negative Unless Noted: Yes Past Madzmhs-Nisrsi-Kjtbfo Hx Patient Social History Tobacco Use?: No Use of E-Cig and/or Vaping dev: No Substance use?: No Alcohol Use?: No Pt feels they are or have been: No Immunizations Up To Date Influenza Vaccine Up-to-Date: Yes; Up-to-Date Seasonal Allergies Seasonal Allergies: Yes Past Medical History Surgery/Hospitalization HX: HTN, ORTHOPEDIC SX. has dentures Surgeries: Yes (HERNIA, LT ANKLE, RT KNEE) Abdominal, Orthopedic Respiratory: Yes Pneumonia Cardiac: Yes (HX OF HYPERTENSION--DOES NOT TAKE MEDICATION) Neurological: No (HEAT STROKE) Reproductive Disorders: No Sexually Transmitted Disease: No HIV/AIDS: No Genitourinary: Yes Kidney Infection Gastrointestinal: Yes Abdominal Hernia Musculoskeletal: Yes (KNEE PAIN) Arthritis Endocrine: Yes Hypothyroidsim HEENT: No Cancer: No Psychosocial: Yes Sleep Difficulties, Anxiety Blood Disorders: No Family Medical History Reviewed Nursing Family Hx Physical Exam Vital Signs Vital Signs - First Documented 08/15/21 19:37 Temp 37.0 Pulse 79 Resp 18 B/P (MAP) 167/96 (119) Pulse Ox 99 O2 Delivery Room Air Capillary Refill : Less Than 3 Seconds Height, Weight, BMI Height: 6'1" Weight: 232lbs. oz. 105.743102ci; 29.00 BMI Method:Stated General Appearance: WD/WN, no apparent distress Cardiovascular: normal peripheral pulses, regular rate, rhythm Hand: normal ROM, Left, laceration (Base of left thumb) Neurologic/Psychiatric: no motor/sensory deficits, alert, normal mood/affect, oriented x 3 Skin: normal color, warm/dry Procedures/Interventions Wound Location: Upper Extremities (Left thumb) Wound Length (cm): 3.5 Wound's Depth, Shape: superficial Wound Explored: clean Irrigated w/ Saline (ccs): 500 Betadine Prep?: Yes Anesthesia: 1% Lidocaine Volume Anesthetic (ccs): 4 Suture: Prolene Suture Size: 4-0 Number of Sutures: 3 Sterile Dressing Applied?: Yes Progress Wound well approximated. Bulky sterile dressing applied. Patient tolerated procedure well. Progress/Results/Core Measures Results/Orders My Orders Orders - POP ARROYO JULIAN Dipht,Pertuss(Acell),Tet Adult (Boostrix (08/15/21 20:00) Lidocaine 1% Inj 20 Ml (Xylocaine 1% Inj (08/15/21 20:15) Medications Given in ED Current Medications Medications Dose Ordered Sig/Rajeev Route Start Time Stop Time Status Last Admin Dose Admin Diphtheria/ Tetanus/Acell Pertussis 0.5 ml ONCE ONCE IM 08/15/21 20:00 08/15/21 20:01 DC 08/15/21 19:58 0.5 ML Lidocaine HCl 20 ml ONCE ONCE INJ 08/15/21 20:15 08/15/21 20:16 DC 08/15/21 20:22 20 ML Vital Signs/I&O 08/15/21 08/15/21 19:37 20:49 Temp 37.0 37.0 Pulse 79 79 Resp 18 18 B/P (MAP) 167/96 (119) 167/96 Pulse Ox 99 99 O2 Delivery Room Air Room Air Blood Pressure Mean: 119 Departure Impression Primary Impression: Laceration of left thumb Qualified Codes: S61.012A - Laceration without foreign body of left thumb without damage to nail, initial encounter Disposition: HOME, SELF-CARE Condition: Improved Departure-Patient Inst. Decision time for Depature: 20:30 Referrals: JESSICA VALLADARES DO (PCP/Family) Primary Care Physician Patient Instructions: Laceration Repair With Stitches (DC) Add. Discharge Instructions: Keep the dressing dry and in place for 24 hours, you may re-inforce if needed. Take antibiotics as ordered. You can alternate between Tylenol 650 mg ibuprofen 600 mg every 4 hours for pain. Do not submerge the wound in standing water (tub, pool, sink, morales, etc). Leave sutures in place, return to Emergency Dept or your Primary Care Provider i n 7-10 days for removal. You may shower tonight but cover the back with plastic wrap or bag. In 24 hours you can shower, without covering, do not have water hit directly over wound. Clean with peroxide after shower, leave open to air when at home, cover with dressing or band-aid when out of the house. Watch for signs of infection: Redness, increased tenderness, warmth, discolored drainage or foul smelling drainage. Return to the emergency department for new, urgent health care problems. All discharge instructions reviewed with patient and/or family. Voiced understanding. Scripts Cephalexin (Cephalexin) 500 Mg Tablet 500 MG PO TID, #15 TAB 0 Refills Prov: POP ARROYO 08/15/21 Copy Copies To 1: JESSICA VALLADARES AMY ARNP August 15, 2021 20:41
[2021-08-15 20:49] VITALS: BP 167/96
== END 2021-08-15 20:48 | disposition home or self-care (01) ==
LOC: EDUNIT# 19:27 → ER 19:29
DX: S61.012A Laceration without foreign body of left thumb without damage to nail, initial encounter (principal); Z23 Encounter for immunization; W25.XXXA Contact with sharp glass, initial encounter
CPT/HCPCS: 12001; 90715

== ENCOUNTER 2021-08-22 12:42 | Emergency (ER) | payer MEDICARE ==
[~2021-08-22 12:42] MED LIST changes: +CEPH500T PO
[2021-08-22 12:52] VITALS: BP 144/79
== END 2021-08-22 13:08 | disposition home or self-care (01) ==
LOC: EDUNIT# 12:42 → ER 12:43
DX: Z48.02 Encounter for removal of sutures (principal)